=== PATIENT | male | born 1975 | race Asian ===

== ENCOUNTER 2018-07-28 15:02 | Outpatient (CLI) | payer BC ==
--- NOTE | 2018-07-28 16:55 | RAD ---
PA AND LATERAL CHEST: FINDINGS: There is blunting to the left costophrenic angle and posterior sulcus. There is some minimal linear p arenchymal change in the region of the lingula. IMPRESSION: Suggestion of some left sided effusion with parenchymal changes in the lingula, more suggestive of at electasis than infiltrate but could represent early infiltrate. POS: [facility]
== END 2018-07-28 15:03 | disposition home or self-care (01) ==
LOC: BICRAD 15:02
PROVIDERS: ATTEND Family Medicine
DX: J18.1 Lobar pneumonia, unspecified organism (principal)
CPT/HCPCS: 71046